=== PATIENT | male | born 2000 | race Caucasian/White ===

== ENCOUNTER 2021-09-08 14:31 | Emergency (ER) | payer OTHER ==
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
[2021-09-08 16:17] LABS: ACETAMINOPHEN 0 ug/mL (10-30)
[2021-09-08] MEDS ORDERED: LORazepam 1 MG Tab PO ONE (17:39)
[2021-09-08] MEDS ORDERED: Acetaminophen 325 MG Tab PO ONE (17:39)
== END 2021-09-08 19:29 | disposition home or self-care (01) ==
LOC: JD.ED 14:31
DX: F10.99 Alcohol use, unspecified with unspecified alcohol-induced disorder (principal); S00.81XA Abrasion of other part of head, initial encounter; S60.512A Abrasion of left hand, initial encounter; S60.511A Abrasion of right hand, initial encounter; F17.290 Nicotine dependence, other tobacco product, uncomplicated; Y90.0 Blood alcohol level of less than 20 mg/100 ml; Z20.822 Contact with and (suspected) exposure to COVID-19; V19.9XXA Pedal cyclist (driver) (passenger) injured in unspecified traffic accident, initial encounter
CPT/HCPCS: 36415; 80053; 80143; 80179; 80306; 80307; 83735; 84443; 85025; 87635; 93005; 99284; A9270; U0002